=== PATIENT | female | born 1970 | race Caucasian/White ===

== ENCOUNTER 2017-10-12 00:32 | Inpatient (IN) | payer OTHER, BC ==
[2017-10-12] MEDS: IV NORMAL SALINE 1000ML BAG 1,000 ML IV (01:00)
[2017-10-12] MEDS ORDERED: ONDANSETRON PF 4 MG/2 ML VIAL. IV ×2 (01:00→14:45)
[2017-10-12 05:46] LABS: ADD MAN DIFF? NO
[2017-10-12 05:57] LABS: BASO % 0 % (0-3); EOS % 1 % (0-3); HEMATOCRIT 32.7 % (36.0-47.0); HEMOGLOBIN 11.1 g/dL (12.0-15.5); LYMPH # 0.8 x10^3/uL (1.0-4.8); LYMPH % 12 % (24-48); MEAN CORPUSCULAR HEMOGLOBIN 32 pg (25-35); MEAN CORPUSCULAR HGB CONC 34 g/dL (31-37); MEAN CORPUSCULAR VOLUME 94 fL (79-100); MONO # 0.7 x10^3/uL (0.0-1.1); MONO % 10 % (0-9); NEUT # 5.1 x10^3uL (1.8-7.7); NEUT % 77 % (31-73); PLATELET COUNT 144 x10^3/uL (140-400); RED CELL DISTRIBUTION WIDTH 12.9 % (11.5-14.5); WHITE BLOOD COUNT 6.7 x10^3/uL (4.0-11.0)
[2017-10-12 06:45] LABS: ANION GAP 7 (6-14); BLOOD UREA NITROGEN 14 mg/dL (7-20); CALCIUM 8.6 mg/dL (8.5-10.1); CARBON DIOXIDE 26 mmol/L (21-32); CHLORIDE 110 mmol/L (98-107); CREATININE 0.9 mg/dL (0.6-1.0); GFR 66.5; GLUCOSE 102 mg/dL (70-99); POTASSIUM 4.3 mmol/L (3.5-5.1); SODIUM 143 mmol/L (136-145)
[2017-10-12] MEDS ORDERED: MORPHINE SULFATE 2 MG/ML DISP.SYRIN. IV (10:30)
[2017-10-12] MEDS ORDERED: LIDOCAINE 1% PF 2 ML VIAL. ID (10:30)
[2017-10-12] MEDS ORDERED: fentaNYL PF VIAL 100 MCG/2 ML VIAL IV ×2 (10:30)
[2017-10-12] MEDS ORDERED: PROCHLORPERAZINE 10 MG/2 ML VIAL. IV (10:30)
[2017-10-12] MEDS ORDERED: HYDROmorphone 2 MG/ML VIAL IV (10:30)
[2017-10-12] MEDS ORDERED: MIDAZOLAM HCL/PF 2 MG/2 ML VIAL. (10:31)
[2017-10-12] MEDS ORDERED: fentaNYL PF VIAL 100 MCG/2 ML VIAL (10:31)
[2017-10-12] MEDS ORDERED: DEXAMETHASONE SOD PHOS 20 MG/5 ML VIAL. (10:32)
[2017-10-12] MEDS ORDERED: ROCURONIUM 50 MG/5 ML VIAL. (10:32)
[2017-10-12] MEDS ORDERED: ONDANSETRON PF 4 MG/2 ML VIAL. (10:32)
[2017-10-12] MEDS ORDERED: PROPOFOL 20 ML IV (10:32)
[2017-10-12] MEDS ORDERED: ceFAZolin 1GM IVPB FOR OMNI 100 ML IV (11:07)
[2017-10-12] MEDS: BUPIVAC MPF-EPI 0.75%-1:200000 30 ML VIAL. (11:12)
[2017-10-12] MEDS ORDERED: NEOSTIGMINE METHYLSULFATE 5 MG/5 ML SYRINGE. (11:27)
[2017-10-12] MEDS ORDERED: GLYCOPYRROLATE 1 MG/5 ML VIAL. (11:27)
[2017-10-12] MEDS ORDERED: SEVOFLURANE 61 TO 120 MINUTES. IH (11:45)
[2017-10-12] MEDS: fentaNYL PF VIAL 100 MCG/2 ML VIAL IV ×4 (12:29→21:44)
[2017-10-12] MEDS: IV RINGERS,LACTATED 1000ML 1,000 ML IV (12:31)
[2017-10-12] MEDS ORDERED: INFLUENZA VAX SCREEN BY RX. MC (13:00)
[2017-10-12] MEDS ORDERED: DEXTROSE 50% 25 GM / 50ML DISP.SYRIN. IV (14:45)
[2017-10-12] MEDS ORDERED: diphenhydrAMINE 50 MG/ML VIAL IV (14:45)
[2017-10-12] MEDS ORDERED: oxyCODONE/APAP 5/325 1 TAB TABLET PO (14:45)
[2017-10-12] MEDS ORDERED: 0.9 % SODIUM CHLORIDE 10 ML DISP.SYRIN. IV (14:45)
[2017-10-12] MEDS ORDERED: diphenhydrAMINE HCL 25 MG CAPSULE PO (14:45)
[2017-10-12] MEDS: POTASSIUM CL 20MEQ-0.45% NACL 1,000 ML IV (15:29)
[2017-10-12] MEDS: HYDROmorphone 2 MG/ML VIAL IV (17:18)
[2017-10-12] MEDS: DOCUSATE SODIUM 100 MG CAPSULE. PO (21:43)
[2017-10-13] MEDS: POTASSIUM CL 20MEQ-0.45% NACL 1,000 ML IV ×2 (02:39→12:00)
[2017-10-13] MEDS: IBUPROFEN 600 MG TABLET. PO (08:21)
[2017-10-13] MEDS: DOCUSATE SODIUM 100 MG CAPSULE. PO (08:21)
[2017-10-13] MEDS: ENOXAPARIN 40 MG/0.4 ML SYRINGE. SQ (08:24)
[2017-10-13] MEDS: FLU VACC QS2017-18 (36MOS+)/PF 0.5 ML SYRINGE. VAX IM (08:26)
== END 2017-10-13 13:15 | disposition home or self-care (01) | DRG 343 ==
LOC: 4 NORTH 00:32
PROC: 0DTJ4ZZ Resection of Appendix, Percutaneous Endoscopic Approach (ICD-10-PCS; principal; 2017-10-12 10:50)
DX: K35.80 Unspecified acute appendicitis (principal); I10 Essential (primary) hypertension; Z88.8 Allergy status to other drugs, medicaments and biological substances
CPT/HCPCS: 36415; 80048; 85025; 88304; 90686; C1769; J0690; J1100; J1170; J1650; J2250; J2405; J2704; J2710; J3010; J3490; J7030; J7120